=== PATIENT | female | born 1980 | race Caucasian/White ===

== ENCOUNTER 2017-01-02 19:23 | Emergency (ER) | payer OTHER ==
--- NOTE | 2017-01-02 22:21 | ED ORDER SUMMARY ---
..... Patient: BRADLEY ALCANTAR OrderSheet [facility] VisitID: [id number] [place] [address] 36y, F Registration Date/Time: 01/02/2017 ORDER SHEET Weight: 63.5 kg (stated) Allergies: No Known Drug Allergy GENERAL ORDERS: CBC w Diff Urgent (20:48 01/02/2017 HBivens A.R.N.P.) (Ack 20:49 AMcQuoid ER Tech1) (20:49 AMcQuoid ER Tech1) CMP Urgent (20:48 01/02/2017 HBivens A.R.N.P.) (Ack 20:49 AMcQuoid ER Tech1) (20:49 AMcQuoid ER Tech1) Serum Qualitative Urgent (20:48 01/02/2017 HBivens A.R.N.P.) (Ack 20:49 AMcQuoid ER Tech1) (20:49 AMcQuoid ER Tech1) Pelvic Exam Setup (20:48 01/02/2017 HBivens A.R.N.P.) (20:49 RKaruga) (Ack 20:49 AMcQuoid ER Tech1) Wet Prep (Cervix) (cervix) Urgent (21:29 01/02/2017 HBivens A.R.N.P.) (Ack 21:31 AMcQuoid ER Tech1) (21:41 RCollier R.N.) GC/Chlamydia (Cervix) (cervix) Urgent (21:29 01/02/2017 HBivens A.R.N.P.) (Ack 21:31 AMcQuoid ER Tech1) (21:41 RCollier R.N.) MEDICATION ORDERS: Ceftriaxone IM 250 mg (NOW) (21:29 01/02/2017 HBivens A.R.N.P.) (Ack 21:32 RCollier R.N.) (21:41 RCollier R.N.) IV FLUIDS: IV NS : initial bolus 1000 mL (1000 mL/hr), then none - (NOW) (20:48 01/02/2017 HBivens A.R.N.P.) (Ack 21:06 RCollier R.N.) (21:17 Richard Menendez) ORDER SHEET NOTES: [Electronically signed by Reanna Machado (23:09 01/02/2017)] [Electronically signed by Donnell Herron R.N. (11:30 01/13/2017)] [Electronically locked/signed by Donnell Herron R.N. (11:30 01/13/2017)]
--- NOTE | 2017-01-02 22:21 | ED CLINICAL REPORT ---
Clinical Report - Physicians/Mid Levels [facility] [address] [place] [address] 01/02/2017 19:23 Patient: BRADLEY ALCANTAR Time Seen: 20:23; initial patient contact, initial documentation. Arrived- By private vehicle. Historian- patient. HISTORY OF PRESENT ILLNESS Chief Complaint: VAGINAL BLEEDING. This started just prior to arrival and still present. The symptoms are described as severe. Modifying factors. Not worsened by anything. Not relieved by anything. The patient has had moderate, crampy pelvic pain, described as "pain". She has had abnormal bleeding described as heavier than normal period and passing clots on period now, says this is day 3 of her period, and day 3 is always the heaviest, but this is the worst yet. The bleeding has required use of about 6 tampons per day. She is not or postmenopausal. No control. She has had a scant amount of yellow, green vaginal discharge (says she had dc, last month before her period, and now again before period, dc started about 3 days prior to cycle). There is no prior history of pelvic inflammatory disease or exposure to venereal disease. The patient does not believe the discharge to be a yeast infection. No abdominal pain, vaginal pain, low back pain, flank pain or vaginal itching. No genital lesions, pain with urination, urinary frequency, urgency of urination or hematuria. Sexually active- unprotected sex and heterosexual. The patient has had possible exposure to sexually transmitted disease. (says she recently broke up with her boyfriend because he cheated A2 - abortions). Denies current . Similar symptoms previously: None. Recent medical care: Not recently seen/assessed. REVIEW OF SYSTEMS No nausea, vomiting, diarrhea, fever or difficulty breathing. No chest pain. All systems otherwise negative, except as recorded above. PAST HISTORY See nurses notes. Ovarian cyst. ( PROBLEMS: Herpes Genitalis. --19:52 Josi Redmond, R.N. ADDITIONAL SURGERIES: Buttock surgery. Cervical cancer surgery. --19:52 Josi Redmond, R.N.). Anemia. ( Vaginitis - Bacterial). SOCIAL HISTORY Light tobacco smoker. No alcohol use or drug use. No recent travel. Is a local resident. FAMILY HISTORY Negative. ADDITIONAL NOTES The nursing notes have been reviewed with agreement regarding the chief complaint, HPI, ROS, PMH and patient medications and allergies. PHYSICAL EXAM Vital Signs: 01/02/2017 19:44 BP: 146/99. HR: 68. RR: 16. O2 saturation: 100%. Temp: 98.3 F. Pain level now: 0/10. Have been reviewed as abnormal and appear to be correct. Hypertensive. Heart rate normal. Respiratory rate normal. Temperature normal. Oxygen saturation normal. Appearance: Alert. Oriented X3. No acute distress. HEENT: Normal external inspection. ENT: Pharynx normal. Neck: Neck supple. CVS: Heart sounds normal. Respiratory: No respiratory distress. Breath sounds normal. Chest nontender. Abdomen: Soft and nontender. Bowel sounds normal. No organomegaly. No mass. Back: Normal external inspection. : External inspection normal. Speculum exam normal. Bimanual exam normal. Skin: Skin warm and dry. Normal skin color. No rash. Normal skin turgor. Extremities: Extremities nontender. No lower extremity edema. Neuro: Oriented X 3. Mood/affect normal. No motor deficit. No sensory deficit. LABS, X-RAYS, AND EKG Laboratory Tests: Serum Qualitative: (ABELARDO: 01/02/2017 20:15) ( [facility] 01/02/2017 21:08) Final results Test Result Flag Units (Reference) , SERUM NEGATIVE CBC w Diff: (ABELARDO: 01/02/2017 20:15) ( [facility] 01/02/2017 21:07) Final results Test Result Flag Units (Reference) WHITE BLOOD COUNT 12.2 H K/uL (4.5-11.5) RED BLOOD COUNT 3.86 L M/uL (4.00-5.20) HEMOGLOBIN 12.3 gm/dL (12.0-16.0) HEMATOCRIT 36.2 % (36.0-46.0) MEAN CELL VOLUME 94 fL (80-100) MEAN CORPUSCULAR HGB 32 pg (26-34) MEAN CORPUSCULAR HGB CONC 34 g/dL (31-37) RED CELL DISTRIBUTION WIDTH 12.8 % (11.6-14.8) PLATELET COUNT 250 K/uL (150-400) NEUTROPHIL % 63.0 % (50-75) LYMPH % 27.4 % (25-40) MONO % 7.5 % (3-14) EOSINOPHIL % 1.8 % (0-4) BASOPHIL % 0.3 % (0-2) CMP: (ABELARDO: 01/02/2017 20:15) ( [facility] 01/02/2017 21:12) Final results Test Result Flag Units (Reference) GLUCOSE 93 mg/dL (70-110) BUN 14 mg/dL (7-18) CREATININE 0.9 mg/dL (0.6-1.3) Estimated GFR >60 mL/min Estimated GFR- >60 mL/min Note: Persistent reduction over 3 months in eGFR<60 mL/min/1.73 m2 defines CKD. Patients with eGFR values>=60 mL/min/1.73 m2 may also have CKD if evidence ofpersistent proteinuria. Additional information may be foundat www.kidney.org. SODIUM 142 mmol/L (136-145) POTASSIUM 3.9 mmol/L (3.5-5.1) CHLORIDE 106 mmol/L (98-107) CARBON DIOXIDE 26 mmol/L (21-32) CALCIUM 9.2 mg/dL (8.5-10.1) TOTAL PROTEIN 7.4 g/dL (6.4-8.2) ALBUMIN 3.9 g/dL (3.3-5.0) BILIRUBIN, TOTAL 0.3 mg/dL (0.0-1.0) ALKALINE PHOSPHATASE 90 U/L (46-116) AST (SGOT) 18 U/L (15-37) ALT (SGPT) 28 U/L (12-78) Wet Prep: (ABELARDO: 01/02/2017 21:12) ( [facility] [place] 01/02/2017 21:48) Final results SPECIMEN DESCRIPTION: CERVIX Test Result Flag Units (Reference) WET MOUNT CLUE CELLS:: NONE EPITHELIAL CELLS: RARE -- SOURCE?: CERVIX WHITE BLOOD CELLS: 1+ TRICHOMONAS:: NONE -- YEAST:: NONE . PROGRESS AND PROCEDURES Course of Care: 01/02/2017 22:33 BP: 123/78. HR: 65. RR: 16. O2 saturation: 100%. Temp: 97.7 F. Vital Signs: have been reviewed as normal and appear to be correct. Patient counseled in person regarding the patient's stable condition, test results and diagnosis. 22:11. Differential Diagnosis: I considered vaginitis, vaginal polyps, vaginal lesion, vaginal cancer, vulvar infection, pelvic inflammatory disease, endometriosis, uterine fibroids, uterine polyps, uterine hyperplasia, uterine cancer, intrauterine , ectopic , incomplete , threatened , retained products of , endometritis and dysfunctional uterine bleeding as a possible cause of vaginal bleeding in this patient. This is a partial list of diagnoses considered. Above considerations are based on history, physical exam, reassessment and laboratory data. Differential diagnosis was discussed with patient. Disposition: Discharged home in good and improved condition (22:20). Condition: good and stable. CLINICAL IMPRESSION Moderate menorrhagia. INSTRUCTIONS Warnings: GENERAL WARNINGS: Return or contact your physician immediately if your condition worsens or changes unexpectedly, if not improving as expected, or if other problems arise. Specifically return if problem worsens. Prescription Medications: Zithromax 500 mg tablets: take 2 orally initially. Total course 1 day Ultram 50 mg tablets: take 1-2 orally every 6 hours as needed for pain. Dispense twenty (20). No refills. Substitution is permissible. Follow-up: Follow up with your doctor in about three days even if well. Call for an appointment. Summary of care provided to patient. Blood pressure screening was not performed during this visit because blood pressure screening was precluded by clinical urgency. Understanding of the discharge instructions verbalized by patient. (Electronically signed by Reanna Machado A.R.N.P. 01/02/2017 23:09)
--- NOTE | 2017-01-02 22:21 | ED NURSING NOTES ---
Clinical Report - Nurses [facility] [address] [place] [address] 01/02/2017 19:23 Patient: BRADLEY ALCANTAR TRIAGE Triage time 19:47. Acuity: LEVEL 3. Chief Complaint: VAGINAL BLEED. --19:54 Josi Redmond R.N. 19:44 01/02/17. BP: 146/99 taken on the right arm, while sitting. HR: 68 (regular and normal rate). RR: 16. O2 saturation: 100% on room air. Temp: 98.3 F. Pain level now: 0/10. --19:54 Josi Redmond R.N. Weight: 63.5 kg stated. Height/Length: 67 inches Per Patient. BMI: 21.9. --19:48 Josi Redmond R.N. Medications Acyclovir Oral 200 mg, daily. --19:51 Josi Redmond R.N. Allergies No Known Drug Allergy. --19:51 Josi Redmond R.N. History Arrived by private vehicle. Historian: patient. Accompanied by friend. Primary physician (sudha). This started just prior to arrival. ( pt reports over 2 hour timeframe went through 6 superplus tampons with large clots "thumb size" soaking into panty liner. bleeding has slowed at this time per pt.). She has had abnormal bleeding. PAST MEDICAL HX: Immunizations: up-to-date. Last normal menstrual period now. 3. Para 1. Abortions 2. Sexual history - sexually active. No contraception. SOCIAL HX: Light tobacco smoker (cigarette)- less than 1/2 a pack per day. Occasional alcohol use. (2 times month). No drug use. No infectious disease exposure. ABUSE ASSESSMENT: No report of abuse. SELF HARM ASSESSMENT: A self harm assessment was performed. The patient answered "no" to the question "Have you recently felt down, depressed, or hopeless?", "Have you noticed less interest or pleasure in doing things?", "Do you have thoughts of harming or killing yourself?", "Are you here because you tried to hurt yourself?", "Have you ever tried to hurt yourself before today?", "Have you recently had thoughts about harming or killing others?" and "Do you have any dangerous items in your possession?". FALL RISK ASSESSMENT: Fall risk assessment completed. No fall risk identified. NUTRITIONAL RISK ASSESSMENT: The nutritional risk assessment revealed no deficiencies. FUNCTIONAL ASSESSMENT: Functional assessment: no impairments noted. LEARNING NEEDS ASSESSMENT: The learning needs assessment revealed no barriers. SKIN INTEGRITY ASSESSMENT: Skin integrity risk assessment completed. No skin integrity risk identified. --19:54 Josi Redmond R.N. PROBLEMS: Herpes Genitalis. --19:52 Josi Redmond R.N. ADDITIONAL SURGERIES: Buttock surgery. Cervical cancer surgery. --19:52 Josi Redmond R.N. Interventions ID band on patient. --19:54 Josi Redmond R.N. PHYSICAL ASSESSMENT Ambulatory to room. GENERAL / NEURO / PSYCH: Alert. Oriented X 4. Appears anxious. RESPIRATORY: Respirations not labored. CVS: Capillary refill less than 2 seconds. GI / : Abdomen soft. SKIN: Skin is warm and dry. --20:17 Phuong Esteves R.N. 20:14 01/02/17. BP: 155/91. HR: 61. RR: 18. O2 saturation: 100%. Temp: 97.8 F. Pain level now: 0/10. Additional comments: Pt states no pain at this time. Had taken "2 Advil" earlier in the day. . --20:17 Phuong Esteves R.N. GENERAL / NEURO / PSYCH: ( Pt states she is having dizzy spells and hot flashes.). --20:17 Phuong Esteves R.N. NURSING PROGRESS NOTES 20:19 01/02/2017 Site #1 started via IV in the left antecubital space with an 20g angiocath; one attempt. Blood drawn: rainbow set. Labeled in the presence of the patient. Saline lock flushed with 10 mL saline (Blood banded.). --20:19 Phuong Esteves R.N. 20:23 01/02/17. The plan of care for this patient has been created. Patient gowned. Head of bed elevated. ( blood banded at time of IV start by this RN). Call light placed in reach. Bed placed in lowest position. Brakes of bed on. --20:23 Donnell Herron R.N. 21:17 01/02/2017 Started bag #1 1000 mL IV Fluids IV NS (Saline); at 1000 mL/hr over 1 hour(s) via site #1 via IV pump. Allergies verified and confirmed 5 rights. IV patency established. IV site checked: no pain, redness, or swelling. IV flushed thoroughly pre- and post-medication administration. --21:17 Josi Redmond R.N. Ec Teacher provided for the pelvic exam by the physician. PELVIC EXAM: Pelvic exam performed by PA. Assisted by one nurse. Preparation: pelvic tray. Procedure: speculum exam. Specimens collected and sent to lab: GC, chlamydia and wet prep. Status post-procedure: she was stable and no complications were noted. Total time of assist / procedure: 15 minutes. --21:18 Josi Redmond R.N. 21:38 01/02/2017 Ceftriaxone IM 250 mg with 1% Lidocaine 2.1mL. Given in the left ventral gluteus. Allergies verified and confirmed 5 rights. --21:41 Fiona Williamson R.N. 21:42 01/02/17. BP: 123/80. HR: 69. RR: 15. O2 saturation: 100% on room air. Temp: deferred. Hassan-Arriaga pain scale: 2/10. --21:42 Fiona Williamson R.N. DISPOSITION / DISCHARGE 22:33 01/02/17. Departure time: 1031. Condition at departure: improved and stable. No learning barriers present. Discharge instructions provided and reviewed with the patient. Reviewed medication(s) side effects, precautions, dosing and course information. Prescription(s) given to the patient. Patient verbalized understanding. Written instructions provided in Occitan. The patient was discharged by the nurse practitioner. She was discharged home and accompanied by in flight technician. She left the Emergency Department ambulatory and via private vehicle. Drywall Taper Helper driving. --22:33 Donnell Herron R.N. 22:33 01/02/17. BP: 123/78. HR: 65. RR: 16. O2 saturation: 100%. Temp: 97.7 F. Pain level now 0/10. --22:33 Donnell Herron R.N. Locked/Released at 01/13/2017 11:30 by Donnell Herron R.N.
--- NOTE | 2017-01-02 22:21 | ED ORDER SUMMARY ---
..... Patient: BRADLEY ALCANTAR OrderSheet [facility] VisitID: [id number] [place] [address] 36y, F Registration Date/Time: 01/02/2017 ORDER SHEET Weight: 63.5 kg (stated) Allergies: No Known Drug Allergy GENERAL ORDERS: CBC w Diff Urgent (20:48 01/02/2017 HBivens A.R.N.P.) (Ack 20:49 AMcQuoid ER Tech1) (20:49 AMcQuoid ER Tech1) CMP Urgent (20:48 01/02/2017 HBivens A.R.N.P.) (Ack 20:49 AMcQuoid ER Tech1) (20:49 AMcQuoid ER Tech1) Serum Qualitative Urgent (20:48 01/02/2017 HBivens A.R.N.P.) (Ack 20:49 AMcQuoid ER Tech1) (20:49 AMcQuoid ER Tech1) Pelvic Exam Setup (20:48 01/02/2017 HBivens A.R.N.P.) (20:49 RKaruga) (Ack 20:49 AMcQuoid ER Tech1) Wet Prep (Cervix) (cervix) Urgent (21:29 01/02/2017 HBivens A.R.N.P.) (Ack 21:31 AMcQuoid ER Tech1) (21:41 RCollier R.N.) GC/Chlamydia (Cervix) (cervix) Urgent (21:29 01/02/2017 HBivens A.R.N.P.) (Ack 21:31 AMcQuoid ER Tech1) (21:41 RCollier R.N.) MEDICATION ORDERS: Ceftriaxone IM 250 mg (NOW) (21:29 01/02/2017 HBivens A.R.N.P.) (Ack 21:32 RCollier R.N.) (21:41 RCollier R.N.) IV FLUIDS: IV NS : initial bolus 1000 mL (1000 mL/hr), then none - (NOW) (20:48 01/02/2017 HBivens A.R.N.P.) (Ack 21:06 RCollier R.N.) (21:17 Richard Menendez) ORDER SHEET NOTES: [Electronically signed by Reanna Machado (23:09 01/02/2017)] [Electronically signed by Donnell Herron R.N. (11:30 01/13/2017)] [Electronically locked/signed by Donnell Herron R.N. (11:30 01/13/2017)]
--- NOTE | 2017-01-13 11:31 | ED MED RECONCILIATION SUMMARY ---
Patient: BRADLEY ALCANTAR Medication Reconciliation Report [facility] VisitID: [id number] [place] [address] 36y, F Registration Date/Time: 01/02/2017 Weight: 63.5 kg Height/Length: 67 in. BMI: 21.9 ALLERGIES: No Known Drug Allergy The patient's Home Medications are listed below: THE FOLLOWING MEDICATIONS NEED TO BE RECONCILED: Acyclovir Oral 200 mg, daily The source(s) of the original Home Medication information: Not obtained. The following Medications were given to the patient in the Emergency Department: IV NS IV Fluids bolus 0, then 1000 mL/hr, administered: 01/02/2017 9:17:00 PM Ceftriaxone [IM] IM 250 mg with 1% Lidocaine 2.1 mL, administered: 01/02/2017 9:38:00 PM The following Medications were prescribed to the patient: Zithromax 500 mg tablets: take 2 orally initially. Total course 1 day -- Reanna Machado A.R.NLisaPLisa Ultram 50 mg tablets: take 1-2 orally every 6 hours as needed for pain. Dispense twenty (20). No refills. Substitution is permissible. -- Reanna Machado A.R.NLisaP.
--- NOTE | 2017-01-13 11:31 | ED MAR SUMMARY ---
..... Medication Administration Record [facility] [address] [place] [address] Patient: BRADLEY ALCANTAR Visit ID: [id number] 36y, F Weight: 63.5 kg Height/Length: 67 in BMI: 21.9 ALLERGIES: No Known Drug Allergy Start 21:17 01/02/2017 Josi Redmond RZeke Medication Administered: IV NS (SALINE), Dose: IV Fluids over 1 hour(s), Rate: 1000 mL/hr, Dispensed: 1000 mL bag, Site: #1 left . Medication Ordered: IV NS : initial bolus 1000 mL (1000 mL/hr), then none - (NOW). Given 21:38 01/02/2017 Fiona Williamson RZeke Medication Administered: CEFTRIAXONE [IM], Dose: 250 mg IM, With: 1% LIDOCAINE 2.1 mL. Medication Ordered: Ceftriaxone IM 250 mg (NOW).
--- NOTE | 2017-01-13 11:31 | ED MED RECONCILIATION SUMMARY ---
Patient: BRADLEY ALCANTAR Medication Reconciliation Report [facility] VisitID: [id number] [place] [address] 36y, F Registration Date/Time: 01/02/2017 Weight: 63.5 kg Height/Length: 67 in. BMI: 21.9 ALLERGIES: No Known Drug Allergy The patient's Home Medications are listed below: THE FOLLOWING MEDICATIONS NEED TO BE RECONCILED: Acyclovir Oral 200 mg, daily The source(s) of the original Home Medication information: Not obtained. The following Medications were given to the patient in the Emergency Department: IV NS IV Fluids bolus 0, then 1000 mL/hr, administered: 01/02/2017 9:17:00 PM Ceftriaxone [IM] IM 250 mg with 1% Lidocaine 2.1 mL, administered: 01/02/2017 9:38:00 PM The following Medications were prescribed to the patient: Zithromax 500 mg tablets: take 2 orally initially. Total course 1 day -- Reanna Machado A.R.NLisaPLisa Ultram 50 mg tablets: take 1-2 orally every 6 hours as needed for pain. Dispense twenty (20). No refills. Substitution is permissible. -- Reanna Machado A.R.NLisaP.
--- NOTE | 2017-01-13 11:31 | ED MAR SUMMARY ---
..... Medication Administration Record [facility] [address] [place] [address] Patient: BRADLEY ALCANTAR Visit ID: [id number] 36y, F Weight: 63.5 kg Height/Length: 67 in BMI: 21.9 ALLERGIES: No Known Drug Allergy Start 21:17 01/02/2017 Josi Redmond RZeke Medication Administered: IV NS (SALINE), Dose: IV Fluids over 1 hour(s), Rate: 1000 mL/hr, Dispensed: 1000 mL bag, Site: #1 left . Medication Ordered: IV NS : initial bolus 1000 mL (1000 mL/hr), then none - (NOW). Given 21:38 01/02/2017 Fiona Williamson RZeke Medication Administered: CEFTRIAXONE [IM], Dose: 250 mg IM, With: 1% LIDOCAINE 2.1 mL. Medication Ordered: Ceftriaxone IM 250 mg (NOW).
--- NOTE | 2017-01-13 11:31 | ED DISCHARGE INSTRUCTIONS ---
Patient: BRADLEY ALCANTAR General Instructions [facility] VisitID: [id number] [place] [address] 36y, F Registration Date/Time: 01/02/2017 Moderate menorrhagia. INSTRUCTIONS Warnings: GENERAL WARNINGS: Return or contact your physician immediately if your condition worsens or changes unexpectedly, if not improving as expected, or if other problems arise. Specifically return if problem worsens. Prescription Medications: Zithromax 500 mg tablets: take 2 orally initially. Total course 1 day Ultram 50 mg tablets: take 1-2 orally every 6 hours as needed for pain. Dispense twenty (20). No refills. Substitution is permissible. Follow-up: Follow up with your doctor in about three days even if well. Call for an appointment. Summary of care provided to patient. Blood pressure screening was not performed during this visit because blood pressure screening was precluded by clinical urgency. Understanding of the discharge instructions verbalized by patient. ADDITIONAL INFORMATION Painful Menstrual Periods The uterus is a muscle and contracts normally during the menstrual cycle. The contraction pushes out the build-up of tissue that occurs each month inside the uterus. If the contraction is very strong, it can cause pain because the muscle is not getting enough oxygen for the amount of work it is doing. Pain with menstruation is called dysmenorrhea. The pain may feel like a dull ache or throbbing in the lower abdomen. It may spread to your lower back or inner thighs. In severe cases there may also be nausea, vomiting, loose stools, sweating or dizziness. There are two types of dysmenorrhea: Primary Dysmenorrhea (common menstrual cramps) usually appears within one or two years after you start your periods. It usually gets better or goes away as you get older or when you have a baby. The menstrual cramps usually start just before, or on the day of your period, and last 1-3 days. Treatment is with comfort measures and anti-inflammatory drugs as described below (see Home Care). If your pain is not controlled with these measures, your doctor may prescribe control pills. This will reduce the pain of each period. Secondary Dysmenorrhea starts later in life. The pain begins earlier in the menstrual cycle and lasts longer than common menstrual cramps. It is caused by a specific problem with the pelvic organs, such as: PID (pelvic inflammatory disease) -- an infection in the fallopian tubes Fibroids benign tumors within the wall of the uterus (not cancer) Endometriosis the tissue that lines the uterus spreads outside the uterus and grows there. This tissue swells and bleeds each month, just like the tissue in your uterus, and causes pain. IUD use -- especially in the first few months after placement Once the cause of secondary dysmenorrhea is found, it can be treated. Home Care: Most women with common menstrual cramping (primary dysmenorrhea) can remain active throughout their period. Many women find that regular exercise each werek reduces menstrual pain. If cramping is severe, rest in bed with a heating pad on the lower abdomen or lower back. A hot bath or massage to the lower back and abdomen may also give relief. Smoking can make symptoms worse. If you smoke, ask your doctor for help with a stop-smoking plan. Avoid caffeine and alcohol around the time of your period since these can make symptoms worse. Anti-inflammatory medicine such as aspirin, ibuprofen (Advil, Motrin) or naproxen (Aleve, Naprosyn) can be very helpful, especially if taken at the very first signs of bleeding or cramping . Acetaminophen (Tylenol) is not as effective for this problem. [NOTE: If you have chronic liver or kidney disease or ever had a stomach ulcer or GI bleeding, talk with your doctor before using these medicines.] If your pain is not controlled by the above measures, a prescription pain medicine may be required for a short time. Discuss this with your doctor. Follow Up with your doctor as advised. If you have just started menstruating in the past 1-2 years, and your pain is mild to moderate, your symptoms are most likely not a cause for concern. However, if menstrual cramps are severe enough to interfere with your daily activities, last longer than a few days, or if you are older and just started having menstrual pain, it is important to see your doctor for further evaluation. Get Prompt Medical Attention if any of the following occur: Fever over 100.4F (38.0C) with pelvic pain Uncontrolled menstrual pain or pain that lasts longer than usual or occurs between periods Unusual vaginal discharge between periods Heavy vaginal bleeding (soaking more than one pad an hour for three hours) Passage of pink or leonard tissue from the vagina If you use tampons, watch for the following signs of Toxic Shock Syndrome and return at once: Fever over 102.0F (38.9C), with or without pelvic pain Vomiting, diarrhea Dizziness, weakness or fainting Rash that looks like a bad sunburn Irregular Vaginal Bleeding This is a condition in which bleeding occurs at unexpected times of the month. The bleeding may be heavier or design engineer products than usual. Heavy bleeding may lead to anemia. If severe enough, anemia may cause you to look pale and feel weak or fatigued. You might have shortness of breath even with little exertion. The female hormones produced in your body every month may be out of balance. This imbalance leads to bleeding. Causes could include an ovarian cyst, emotional stress, pelvic infection. Failure to ovulate during your last cycle may also cause this problem. Home Care: If bleeding is heavy, rest and avoid heavy exertion. You may use acetaminophen (Tylenol) or ibuprofen (Motrin, Advil) to control pain, unless another pain medicine was prescribed. [NOTE: If you have chronic liver or kidney disease or ever had a stomach ulcer or GI bleeding, talk with your doctor before using these medicines.] Iron supplements may be prescribed for anemia. It takes about 4-6 weeks for the iron to correct the anemia. Take the medicine as directed. See your doctor for a repeat blood test after you finish the iron treatment. If hormones were prescribed to control your bleeding, take them exactly as directed. If you were prescribed a medicine called Provera (medroxyprogesterone), the bleeding should stop while you are taking it. Another period will start a few days after you finish the medicine. Follow Up with your doctor, or as advised, within the next 1-2 days if heavy bleeding continues. Otherwise, follow up within the next 1-2 weeks. Get Prompt Medical Attention if any of the following occur: Bleeding becomes heavy (soaking one pad an hour for three hours) Fever of 100.4F (38C) or higher, or as directed by your healthcare provider Increase in abdominal pain Weakness, dizziness or fainting Heavy Menstrual Bleeding In this condition (also called "menorrhagia"), the menstrual periods are heavier or longer than usual. You may pass large, dark clots. If you have frequent, heavy periods, you may become anemic (low blood count). Severe anemia may cause you to look pale and feel weak or fatigued. You might become short of breath with minimal exertion. Heavy or prolonged bleeding may be due to female hormones being out of balance. Other causes include pelvic infection, benign fibroid tumors, use of an IUD or low thyroid function. It may occur in girls soon after they start to have their periods. Older women close to the age of menopause may also have this type of bleeding. If heavy bleeding does not stop, further evaluation will be needed to find out the exact cause. Home Care: If you tire easily, get plenty of rest. Avoid heavy exertion. Do not take aspirin-containing products and anti-inflammatory medicines like ibuprofen (Advil, Motrin), which thin the blood and may cause more bleeding. You may take acetaminophen (Tylenol) for pain unless another pain medicine was prescribed. If iron was prescribed for anemia, it will take about 4-6 weeks to rebuild your blood and correct the anemia. Take the iron as directed. If hormones were prescribed to control your bleeding, take them just as instructed. If you stop too soon or miss doses, the bleeding may begin again. If you were prescribed a medicine called Provera (medroxyprogesterone), the bleeding should stop while you are taking it. Another period will start a few days after you finish the medicine. Follow Up: You should see your doctor within the next 1-2 days if your bleeding does not begin to improve. Otherwise, schedule an appointment within the next 1-2 weeks. Get Prompt Medical Attention if any of the following occur: Heavier bleeding (soaking one pad an hour for three hours) Heavy bleeding for more than one week Fever of 100.4F (38C) or higher, or as directed by your healthcare provider Increase in abdominal pain Feeling weak or dizzy, fainting Azithromycin Oral tablet What is this medicine? AZITHROMYCIN (az ith lora MYE sin) is a macrolide antibiotic. It is used to treat or prevent certain kinds of bacterial infections. It will not work for colds, flu, or other viral infections. How should I use this medicine? Take this medicine by mouth with a full glass of water. Follow the directions on the prescription label. The tablets can be taken with food or on an empty stomach. If the medicine upsets your stomach, take it with food. Take your medicine at regular intervals. Do not take your medicine more often than directed. Take all of your medicine as directed even if you think your are better. Do not skip doses or stop your medicine early. Talk to your education technician regarding the use of this medicine in children. Special care may be needed. What side effects may I notice from receiving this medicine? Side effects that you should report to your doctor or health healthcare risk control consultant as soon as possible: allergic reactions like skin rash, itching or hives, swelling of the face, lips, or tongue confusion, nightmares or hallucinations dark urine difficulty breathing hearing loss irregular heartbeat or chest pain pain or difficulty passing urine redness, blistering, peeling or loosening of the skin, including inside the mouth white patches or sores in the mouth yellowing of the eyes or skin Side effects that usually do not require medical attention (report to your doctor or health healthcare risk control consultant if they continue or are bothersome): diarrhea dizziness, drowsiness headache stomach upset or vomiting tooth discoloration vaginal irritation What may interact with this medicine? Do not take this medicine with any of the following medications: lincomycin This medicine may also interact with the following medications: amiodarone antacids cyclosporine digoxin magnesium nelfinavir phenytoin warfarin What if I miss a dose? If you miss a dose, take it as soon as you can. If it is almost time for your next dose, take only that dose. Do not take double or extra doses. Where should I keep my medicine? Keep out of the reach of children. Store at room temperature between 15 and 30 degrees C (59 and 86 degrees F). Throw away any unused medicine after the expiration date. What should I tell my health care provider before I take this medicine? They need to know if you have any of these conditions: kidney disease liver disease irregular heartbeat or heart disease an unusual or allergic reaction to azithromycin, erythromycin, other macrolide antibiotics, foods, dyes, or preservatives or trying to get breast-feeding What should I watch for while using this medicine? Tell your doctor or health healthcare risk control consultant if your symptoms do not improve. Do not treat diarrhea with over the counter products. Contact your doctor if you have diarrhea that lasts more than 2 days or if it is severe and watery. This medicine can make you more sensitive to the sun. Keep out of the sun. If you cannot avoid being in the sun, wear protective clothing and use sunscreen. Do not use sun lamps or tanning beds/booths. Tramadol Hydrochloride Oral tablet What is this medicine? TRAMADOL (TRA ma dole) is a pain reliever. It is used to treat moderate to severe pain in adults. How should I use this medicine? Take this medicine by mouth with a full glass of water. Follow the directions on the prescription label. If the medicine upsets your stomach, take it with food or milk. Do not take more medicine than you are told to take. Talk to your education technician regarding the use of this medicine in children. Special care may be needed. What side effects may I notice from receiving this medicine? Side effects that you should report to your doctor or health healthcare risk control consultant as soon as possible: allergic reactions like skin rash, itching or hives, swelling of the face, lips, or tongue breathing difficulties, wheezing confusion itching light headedness or fainting spells redness, blistering, peeling or loosening of the skin, including inside the mouth seizures Side effects that usually do not require medical attention (report to your doctor or health healthcare risk control consultant if they continue or are bothersome): constipation dizziness drowsiness headache nausea, vomiting What may interact with this medicine? Do not take this medicine with any of the following medications: MAOIs like Carbex, Eldepryl, Marplan, Nardil, and Parnate This medicine may also interact with the following medications: alcohol or medicines that contain alcohol antihistamines benzodiazepines bupropion carbamazepine or oxcarbazepine clozapine cyclobenzaprine digoxin furazolidone linezolid medicines for depression, anxiety, or psychotic disturbances medicines for migraine headache like almotriptan, eletriptan, frovatriptan, naratriptan, rizatriptan, sumatriptan, zolmitriptan medicines for pain like pentazocine, buprenorphine, butorphanol, meperidine, nalbuphine, and propoxyphene medicines for sleep muscle relaxants naltrexone phenobarbital phenothiazines like perphenazine, thioridazine, chlorpromazine, mesoridazine, fluphenazine, prochlorperazine, promazine, and trifluoperazine procarbazine warfarin What if I miss a dose? If you miss a dose, take it as soon as you can. If it is almost time for your next dose, take only that dose. Do not take double or extra doses. Where should I keep my medicine? Keep out of the reach of children. Store at room temperature between 15 and 30 degrees C (59 and 86 degrees F). Keep container tightly closed. Throw away any unused medicine after the expiration date. What should I tell my health care provider before I take this medicine? They need to know if you have any of these conditions: brain tumor depression drug abuse or addiction head injury if you frequently drink alcohol containing drinks kidney disease or trouble passing urine liver disease lung disease, asthma, or breathing problems seizures or epilepsy suicidal thoughts, plans, or attempt; a previous suicide attempt by you or a family member an unusual or allergic reaction to tramadol, codeine, other medicines, foods, dyes, or preservatives or trying to get breast-feeding What should I watch for while using this medicine? Tell your doctor or health healthcare risk control consultant if your pain does not go away, if it gets worse, or if you have new or a different type of pain. You may develop tolerance to the medicine. Tolerance means that you will need a higher dose of the medicine for pain relief. Tolerance is normal and is expected if you take this medicine for a long time. Do not suddenly stop taking your medicine because you may develop a severe reaction. Your body becomes used to the medicine. This does NOT mean you are addicted. Addiction is a behavior related to getting and using a drug for a non-medical reason. If you have pain, you have a medical reason to take pain medicine. Your doctor will tell you how much medicine to take. If your doctor wants you to stop the medicine, the dose will be slowly lowered over time to avoid any side effects. You may get drowsy or dizzy. Do not drive, use machinery, or do anything that needs mental alertness until you know how this medicine affects you. Do not stand or sit up quickly, especially if you are an older patient. This reduces the risk of dizzy or fainting spells. Alcohol can increase or decrease the effects of this medicine. Avoid alcoholic drinks. You may have constipation. Try to have a bowel movement at least every 2 to 3 days. If you do not have a bowel movement for 3 days, call your doctor or health healthcare risk control consultant. Your mouth may get dry. Chewing sugarless gum or sucking hard candy, and drinking plenty of water may help. Contact your doctor if the problem does not go away or is severe. You have been given the following additional information: Dysmenorrhea Dysfunctional Uterine Bleeding Menorrhagia Azithromycin Oral tablet Tramadol Hydrochloride Oral tablet (Electronically signed by Reanna Machado A.R.N.P. 01/02/2017 23:09)
== END 2017-01-02 22:31 | disposition home or self-care (01) ==
LOC: ED SRH 19:23
DX: N92.0 Excessive and frequent menstruation with regular cycle (principal); Z72.0 Tobacco use
CPT/HCPCS: 90100; 90195; 91227; 91228; 95059; 98428